=== PATIENT | male | born 1975 | race Two or more races ===

== ENCOUNTER 2019-01-02 00:15 | Emergency (ER) | payer SELFPAY ==
[~2019-01-02] VITALS: Ht 167.6 cm; Wt 81.6 kg
[2019-01-02 00:45] VITALS: BP 128/83
--- NOTE | 2019-01-02 00:46 | NUR ---
BIBS, A, OX4. W/ C/O H/A X 7-10 DAYS. - N/V. - SOB. - WEAKNESS. -DIARRHEA. + HX OF EAR INFECTION LAST MONTHS. VSS. PLACED ON A MINITOR. WILL CONT TO MONITOR,
--- NOTE | 2019-01-02 00:48 | NUR ---
AT THE BED SIDE
== END 2019-01-02 01:02 | disposition home or self-care (01) ==
LOC: ER 00:28
DX: H60.92 Unspecified otitis externa, left ear (principal)